=== PATIENT | male | born 1965 | race Caucasian/White ===

== ENCOUNTER 2024-01-28 16:02 | Inpatient (IN) ==
[2024-01-28] MEDS: LORazepam 2 MG/ML VIAL IV ONE ×2 (16:48→20:25)
[2024-01-28 16:49] LABS: Basophils # (Auto) 0.02 K/mcL (0.00-0.30); Basophils % (Auto) 0.2 % (0.0-2.0); Eosinophils # (Auto) 0 K/mcL (0.00-0.70); Eosinophils % (Auto) 0 % (0.0-7.0); Hematocrit 39.9 % (40.1-51.0); Hemoglobin 13.9 g/dL (13.7-17.5); Lymphocytes # (Auto) 1.54 K/mcL (1.50-4.80); Lymphocytes % (Auto) 16.7 % (15.5-49.0); Mean Cell Volume 101.3 fL (80.0-100.0); Mean Corpuscular HGB Conc 34.8 g/dL (31.0-36.0); Mean Platelet Volume 9.7 fL (8.8-12.5); Monocytes # (Auto) 1.31 K/mcL (0.10-0.90); Monocytes % (Auto) 14.2 % (1.0-12.0); Neutrophils % (Auto) 68.6 % (38.0-78.0); Platelet Count 264 K/mcL (140-440); RBC 3.94 M/mcL (4.63-6.08); Red Cell Distribution Width 11.7 % (11.5-14.5); WBC 9.2 K/mcL (4.5-11.0)
[2024-01-28 17:18] LABS: Alcohol, Blood < 10.1 mg/dL; Alcohol,Blood < 0.010 gm/dL (<0.010)
[2024-01-28 17:31] LABS: ALT/SGPT 9 U/L (<40); AST/SGOT 27 U/L (<40); Albumin 3.8 gm/dL (3.2-5.2); Albumin/Globulin Ratio 1.1 (1.0-2.3); Alkaline Phosphatase 114 U/L (39-117); Bilirubin,Total 1.4 mg/dL (0.1-1.0); Blood Urea Nitrogen 5 mg/dL (6-20); Calcium 9.1 mg/dL (8.6-10.4); Carbon Dioxide 28 mmol/L (22-30); Chloride 88 mmol/L (96-108); Globulin 3.4 gm/dL (2.2-3.7); Glomerular Filtration Rate 111; Glucose 130 mg/dL (70-105); Potassium 2.8 mmol/L (3.3-5.1); Sodium 130 mmol/L (133-145)
[2024-01-28] MEDS: POTASSIUM CHLORIDE 20 MEQ TABLET PO ONE (18:10)
[2024-01-28 18:12] LABS: Phosphorous 2.1 mg/dL (2.5-4.5)
[2024-01-28] MEDS: 0.9 % SODIUM CHLORIDE 500 ML IV ONE (18:15)
[2024-01-28 18:16] LABS: Appearance,Urine Clear (Clear); Bacteria,Urine 0 /hpf (0); Bilirubin,Urine Negative (Negative); Color,Urine Yellow; Culture Indicated,Urine No; Glucose,Urine (UA) Negative (Negative); Ketones,Urine Trace mg/dL (Negative); Leukocyte Esterase,Urine Negative /uL (Negative); Nitrate,Urine Negative (Negative); Protein,Urine Negative (Negative); Urine Blood Negative ery/mcL (Negative); Urine RBC 0 /hpf (0-3); Urine Squamous Epithelial Cell 0 /hpf (0-4); Urine WBC 1 /hpf (0-4); Urobilinogen,Urine Normal
[2024-01-28 18:17] LABS: Free T4 (Free Thyroxine) 1.26 ng/dL (0.93-1.70)
[2024-01-28] MEDS: POTASSIUM CHLORIDE 20 MEQ in DEXTROSE 5% IN WATER 250 ML IV ONE (18:23)
[2024-01-28] MEDS: THIAMINE 100 MG/ML VIAL ONE ×2 (18:29→19:31)
[2024-01-28] MEDS: THIAMINE 200 MG in 0.9 % SODIUM CHLORIDE 50 ML IV ONE (19:07)
[2024-01-28] MEDS: THIAMINE 500 MG in 0.9 % SODIUM CHLORIDE 50 ML IV ONE (19:35)
[2024-01-28] MEDS ORDERED: LORazepam 2 MG/ML VIAL IV PRN (19:45)
[2024-01-28] MEDS: POTASSIUM CHLORIDE 20 MEQ PACKET PO ONE (19:56)
[2024-01-28] MEDS: levETIRAcetam 1,000 MG in 0.9 % SODIUM CHLORIDE 100 ML IV SCH (20:25)
[2024-01-28] MEDS: POTASSIUM PHOSPHATE 66 MEQ/15 ML VIAL IV ONE (20:35)
[2024-01-28] MEDS: PIPERACILLIN SODIUM/TAZOBACTAM 3.375 GM in DEXTROSE 5% IN WATER 50 ML IV ONE (20:53)
[2024-01-28] MEDS: POTASSIUM PHOSPHATE 40 MEQ in DEXTROSE 5% IN WATER 500 ML IV ONE (20:54)
[2024-01-28] MEDS ORDERED: levETIRAcetam 1,000 MG in 0.9 % SODIUM CHLORIDE 100 ML IV SCH (21:00)
[2024-01-28] MEDS: THIAMINE 500 MG in 0.9 % SODIUM CHLORIDE 50 ML IV SCH (22:00)
[2024-01-28] MEDS: LACTATED RINGERS 1,000 ML IV SCH (22:03)
[2024-01-28 22:06] LABS: Blood Urea Nitrogen 4 mg/dL (6-20); Calcium 8.3 mg/dL (8.6-10.4); Carbon Dioxide 30 mmol/L (22-30); Chloride 93 mmol/L (96-108); Glomerular Filtration Rate 111; Glucose 103 mg/dL (70-105); Potassium 3.3 mmol/L (3.3-5.1); Sodium 135 mmol/L (133-145)
[2024-01-28] MEDS: VANCOMYCIN PER PHARMACY IV ONE (22:14)
[2024-01-28] MEDS: VANCOMYCIN 1,000 MG in 0.9 % SODIUM CHLORIDE 250 ML IV SCH (22:58)
[2024-01-29] MEDS: 0.9 % SODIUM CHLORIDE 10 ML SYRINGE IV SCH (00:05)
[2024-01-29] MEDS: PIPERACILLIN SODIUM/TAZOBACTAM 3.375 GM in DEXTROSE 5% IN WATER 100 ML IV SCH ×2 (00:08→01:49)
[2024-01-29 00:12] LABS: Blood Urea Nitrogen 4 mg/dL (6-20); Calcium 8.1 mg/dL (8.6-10.4); Carbon Dioxide 28 mmol/L (22-30); Chloride 96 mmol/L (96-108); Glomerular Filtration Rate 120; Glucose 113 mg/dL (70-105); Potassium 3.1 mmol/L (3.3-5.1); Sodium 134 mmol/L (133-145)
[2024-01-29] MEDS: POTASSIUM CHLORIDE 20 MEQ PACKET PO ONE (00:45)
[2024-01-29] MEDS: POTASSIUM CHLORIDE 20 MEQ PACKET ONE (00:48)
[2024-01-29] MEDS: NICOTINE 7 MG PATCH TOPICAL SCH (00:48)
[2024-01-29 06:49] LABS: ALT/SGPT 8 U/L (<40); AST/SGOT 21 U/L (<40); Albumin 3.1 gm/dL (3.2-5.2); Albumin/Globulin Ratio 1.2 (1.0-2.3); Alkaline Phosphatase 86 U/L (39-117); Bilirubin,Direct 0.5 mg/dL (<0.3); Bilirubin,Total 1.5 mg/dL (0.1-1.0); Blood Urea Nitrogen 4 mg/dL (6-20); Calcium 7.7 mg/dL (8.6-10.4); Carbon Dioxide 26 mmol/L (22-30); Chloride 101 mmol/L (96-108); Globulin 2.5 gm/dL (2.2-3.7); Glomerular Filtration Rate 111; Glucose 107 mg/dL (70-105); Lactate Dehydrogenase 129 U/L (135-225); Phosphorous 4.7 mg/dL (2.5-4.5); Potassium 3.6 mmol/L (3.3-5.1); Sodium 138 mmol/L (133-145); Triglycerides 73 mg/dL (<150); Uric Acid 5.2 mg/dL (2.5-8.0)
[2024-01-29 07:27] LABS: Basophils # (Auto) 0.02 K/mcL (0.00-0.30); Basophils % (Auto) 0.3 % (0.0-2.0); Eosinophils # (Auto) 0.05 K/mcL (0.00-0.70); Eosinophils % (Auto) 0.7 % (0.0-7.0); Hematocrit 34.8 % (40.1-51.0); Hemoglobin 11.9 g/dL (13.7-17.5); Lymphocytes # (Auto) 1.67 K/mcL (1.50-4.80); Lymphocytes % (Auto) 24.6 % (15.5-49.0); Mean Cell Volume 103.6 fL (80.0-100.0); Mean Corpuscular HGB Conc 34.2 g/dL (31.0-36.0); Mean Platelet Volume 10.6 fL (8.8-12.5); Monocytes % (Auto) 14.7 % (1.0-12.0); Neutrophils % (Auto) 59.6 % (38.0-78.0); Platelet Count 215 K/mcL (140-440); RBC 3.36 M/mcL (4.63-6.08); Red Cell Distribution Width 11.8 % (11.5-14.5); WBC 6.8 K/mcL (4.5-11.0)
[2024-01-29] MEDS ORDERED: VANCOMYCIN PER PHARMACY IV SCH (07:45)
[2024-01-29] MEDS: NICOTINE POLACRILEX 2 MG GUM CHEW/PARK PRN (10:42)
[2024-01-29] MEDS: ACETAMINOPHEN 325 MG TABLET PO PRN (18:49)
[2024-01-29] MEDS: diphenhydrAMINE 25 MG CAPSULE PO PRN (20:43)
[2024-01-29] MEDS: guaiFENesin/DEXTROMETHORPHAN 5ML UD CUP PO PRN (23:42)
[2024-01-30 07:05] LABS: Basophils # (Auto) 0.02 K/mcL (0.00-0.30); Basophils % (Auto) 0.3 % (0.0-2.0); Eosinophils # (Auto) 0.11 K/mcL (0.00-0.70); Eosinophils % (Auto) 1.4 % (0.0-7.0); Hematocrit 34.4 % (40.1-51.0); Hemoglobin 11.9 g/dL (13.7-17.5); Lymphocytes # (Auto) 1.76 K/mcL (1.50-4.80); Lymphocytes % (Auto) 22.2 % (15.5-49.0); Mean Cell Volume 103.9 fL (80.0-100.0); Mean Corpuscular HGB Conc 34.6 g/dL (31.0-36.0); Mean Platelet Volume 10.6 fL (8.8-12.5); Monocytes # (Auto) 0.99 K/mcL (0.10-0.90); Monocytes % (Auto) 12.5 % (1.0-12.0); Neutrophils % (Auto) 63.3 % (38.0-78.0); Platelet Count 200 K/mcL (140-440); RBC 3.31 M/mcL (4.63-6.08); Red Cell Distribution Width 11.8 % (11.5-14.5); WBC 7.9 K/mcL (4.5-11.0)
[2024-01-30 08:01] LABS: ALT/SGPT 10 U/L (<40); AST/SGOT 25 U/L (<40); Albumin/Globulin Ratio 1.2 (1.0-2.3); Alkaline Phosphatase 80 U/L (39-117); Bilirubin,Direct 0.3 mg/dL (<0.3); Blood Urea Nitrogen 2 mg/dL (6-20); Carbon Dioxide 26 mmol/L (22-30); Chloride 97 mmol/L (96-108); Globulin 2.6 gm/dL (2.2-3.7); Glomerular Filtration Rate 120; Glucose 148 mg/dL (70-105); Lactate Dehydrogenase 157 U/L (135-225); Phosphorous 2.7 mg/dL (2.5-4.5); Potassium 2.9 mmol/L (3.3-5.1); Sodium 134 mmol/L (133-145); Triglycerides 82 mg/dL (<150); Uric Acid 3.4 mg/dL (2.5-8.0)
[2024-01-30] MEDS ORDERED: levETIRAcetam 500 MG TABLET PO SCH ×4 (10:18→21:00)
[2024-01-30] MEDS: POTASSIUM CHLORIDE 40 MEQ in DEXTROSE 5% IN WATER 500 ML IV ONE (10:20)
[2024-01-30] MEDS: PNEUMOCOCCAL 23-VAL P-SAC VAC 0.5 ML SYRINGE IM ONE (11:30)
[2024-01-30] MEDS: levETIRAcetam 500 MG TABLET PO ONE (11:57)
[2024-01-30] MEDS: diphenhydrAMINE 25 MG CAPSULE PO PRN (11:58)
[2024-01-30] MEDS: THIAMINE 100 MG/ML VIAL ONE (12:40)
[2024-01-30] MEDS: THIAMINE 250 MG in 0.9 % SODIUM CHLORIDE 50 ML IV SCH (14:35)
[2024-01-30] MEDS ORDERED: LORazepam 2 MG/ML VIAL IV PRN (14:55)
[2024-01-30] MEDS: ONDANSETRON 4 MG/2 ML VIAL IV PRN (15:56)
[2024-01-30] MEDS: LORazepam 1 MG TABLET PO PRN (15:57)
[2024-01-30] MEDS: POTASSIUM CHLORIDE 20 MEQ TABLET PO SCH (16:45)
[2024-01-30] MEDS: levETIRAcetam 500 MG TABLET PO SCH (20:57)
[2024-01-30] MEDS: POTASSIUM CHLORIDE 20 MEQ in DEXTROSE 5% IN WATER 250 ML IV ONE (22:06)
[2024-01-30] MEDS: POTASSIUM CHLORIDE 20 MEQ/10 ML VIAL IV ONE (22:14)
[2024-01-31 06:33] LABS: Basophils # (Auto) 0.03 K/mcL (0.00-0.30); Basophils % (Auto) 0.4 % (0.0-2.0); Eosinophils # (Auto) 0.16 K/mcL (0.00-0.70); Eosinophils % (Auto) 1.9 % (0.0-7.0); Hematocrit 37.2 % (40.1-51.0); Hemoglobin 12.6 g/dL (13.7-17.5); Lymphocytes # (Auto) 1.45 K/mcL (1.50-4.80); Lymphocytes % (Auto) 17.2 % (15.5-49.0); Mean Cell Volume 108.5 fL (80.0-100.0); Mean Corpuscular HGB Conc 33.9 g/dL (31.0-36.0); Mean Platelet Volume 10.1 fL (8.8-12.5); Monocytes # (Auto) 1.19 K/mcL (0.10-0.90); Monocytes % (Auto) 14.1 % (1.0-12.0); Neutrophils % (Auto) 66.2 % (38.0-78.0); Platelet Count 197 K/mcL (140-440); RBC 3.43 M/mcL (4.63-6.08); WBC 8.4 K/mcL (4.5-11.0)
[2024-01-31 06:47] LABS: ALT/SGPT 11 U/L (<40); AST/SGOT 24 U/L (<40); Albumin 2.9 gm/dL (3.2-5.2); Alkaline Phosphatase 78 U/L (39-117); Bilirubin,Direct 0.2 mg/dL (<0.3); Bilirubin,Total 0.7 mg/dL (0.1-1.0); Blood Urea Nitrogen 2 mg/dL (6-20); Calcium 8.4 mg/dL (8.6-10.4); Carbon Dioxide 25 mmol/L (22-30); Chloride 97 mmol/L (96-108); Glomerular Filtration Rate 111; Glucose 99 mg/dL (70-105); Lactate Dehydrogenase 156 U/L (135-225); Phosphorous 3.6 mg/dL (2.5-4.5); Potassium 3.5 mmol/L (3.3-5.1); Sodium 133 mmol/L (133-145); Triglycerides 80 mg/dL (<150); Uric Acid 2.7 mg/dL (2.5-8.0)
== END 2024-01-31 18:19 | disposition home or self-care (01) | DRG 101 ==
LOC: ED 16:02 → ICU 21:41
PROVIDERS: ADMIT Student in an Organized Health Care Education/Training Program; ATTEND Internal Medicine